=== PATIENT | male | born 1975 | race American Indian/Alaskan Native ===

== ENCOUNTER 2017-11-30 21:44 | Emergency (ER) | payer SELFPAY ==
[2017-11-30 22:14] VITALS: BP 123/69
[2017-12-01] MEDS ORDERED: MOTRIN PO ONE (03:34)
--- NOTE | 2017-12-01 03:37 | Emergency Department Report ---
ED General Adult HPI - General Chief complaint: Extremity Injury, Lower Stated complaint: FOOT PAIN, HEADACHE Time Seen by Provider: 12/01/17 03:03 Source: patient Mode of arrival: Ambulatory Limitations: No Limitations - History of Present Illness Initial comments: 42-year-old -[place] male comes in complaining of bilateral foot pain secondary to fungus will see that's been going on for 3-4 months. Patient also complains of lower back pain due to a fall that he had 2 days ago where he fell forward and hurt his back. Patient denies any head injuries also of consciousness urine or feces incontinence. Patient denies taking any medication for his pain. Patient reports that he did take some Lotrimin for his feet a while ago. He has no past medical history currently takes no medications and has no known drug allergies. -: days(s) (back pain), month(s) (3-4 feet pain) Location: back Radiation: non-radiation Severity scale (0 -10): 10 Quality: aching Consistency: intermittent Treatments Prior to Arrival: none - Related Data Previous Rx's Medication Instructions Recorded Last Taken Type Ibuprofen [Motrin 600 MG tab] 600 mg PO Q8H PRN #30 tablet 12/01/17 Unknown Rx Terbinafine [LamiSIL At 1%] 1 applicatio TP BID #1 tube 12/01/17 Unknown Rx Allergies Allergy/AdvReac Type Severity Reaction Status Date / Time iodine Allergy Swelling Verified 11/30/17 23:39 ED Review of Systems ROS: Stated complaint: FOOT PAIN, HEADACHE Other details as noted in HPI Comment: All other systems reviewed and negative Musculoskeletal: back pain (lower) Skin: rash ( on feet) ED Past Medical Hx - Past Medical History Previous Medical History?: No - Surgical History Past Surgical History?: No - Social History Smoking Status: Current Every Day Smoker Substance Use Type: Alcohol - Medications Home Medications: Home Medications Medication Instructions Recorded Confirmed Last Taken Type Ibuprofen [Motrin 600 MG tab] 600 mg PO Q8H PRN #30 tablet 12/01/17 Unknown Rx Terbinafine [LamiSIL At 1%] 1 applicatio TP BID #1 tube 12/01/17 Unknown Rx ED Physical Exam - General Limitations: No Limitations General appearance: alert, in no apparent distress - Head Head exam: Present: atraumatic, normocephalic - Back Exam Back exam: Present: normal inspection, full ROM. Absent: tenderness - Neurological Exam Neurological exam: Present: alert, oriented X3 - Psychiatric Psychiatric exam: Present: normal affect, normal mood - Skin Skin exam: Present: rash (between toes of both feet) ED Course Vital Signs 11/30/17 11/30/17 22:08 23:34 Temperature 98.5 F 98.3 F Pulse Rate 76 68 Respiratory 18 Rate Blood Pressure 123/69 123/69 O2 Sat by Pulse 98 98 Oximetry ED Medical Decision Making - Medical Decision Making Assessment evaluated by this provider fast track. We will give patient ibuprofen for pain. Discussed the patient I will refer him to an title searcher for his fungus on his feet since he has tried [id number] Lotrimin. Patient verbalized understanding. Critical care attestation.: If time is entered above; I have spent that time in minutes in the direct care of this critically ill patient, excluding procedure time. ED Disposition Clinical Impression: Tinea pedis of both feet Lumbago Qualifiers: Chronicity: acute Back pain laterality: unspecified Sciatica presence: without sciatica Qualified Code(s): M54.5 - Low back pain Disposition: DC-01 TO HOME OR SELFCARE Is pt being admited?: No Does the pt Need Aspirin: No Condition: Stable Instructions: Tinea Pedis (ED), Low Back Strain (ED) Additional Instructions: Please take pain medication as prescribed. I recommend to eat before taking medication. Please see his cream to both feet. Change her socks daily. Clean your feet daily and drive between the toes. Follow-up with title searcher if symptoms persist or gets worse. Prescriptions: Ibuprofen [Motrin 600 MG tab] 600 mg PO Q8H PRN #30 tablet PRN Reason: Pain Terbinafine [LamiSIL At 1%] 1 applicatio TP BID #1 tube Referrals: PRIMARY CARE, [Primary Care Provider] - 3-5 Days [facility] [Provider Group] - 3-5 Days [facility] [Provider Group] - 3-5 Days
== END 2017-12-01 03:56 | disposition home or self-care (01) ==
LOC: ED 21:44
DX: B35.3 Tinea pedis (principal); M54.5 Low back pain; F17.200 Nicotine dependence, unspecified, uncomplicated; Z91.041 Radiographic dye allergy status
CPT/HCPCS: 99282